=== PATIENT | female | born 1950 | race Asian ===

== ENCOUNTER 2017-01-14 23:47 | Emergency (ER) | payer OTHER ==
[~2017-01-14] VITALS: Ht 165.1 cm; Wt 61.2 kg
[2017-01-15] MEDS ORDERED: LEVO50 PO (00:04)
[2017-01-15] MEDS ORDERED: CITA20TA9 PO (00:04)
[2017-01-15 00:18] LABS: BASOPHILS # (AUTO) 0.06 K/uL (0.00-0.20); BASOPHILS % (AUTO) 0.8 % (0.0-2.0); EOSINOPHILS # (AUTO) 0.32 K/uL (0.00-0.70); EOSINOPHILS % (AUTO) 4.59 % (1.0-6.0); HEMATOCRIT 37.5 % (36-46); HEMOGLOBIN 12.5 g/dL (12.0-16.0); LYMPHOCYTES # (AUTO) 2.9 K/uL (1.0-4.8); MEAN CORPUSCULAR HEMOGLOBIN 28.5 pg (26.0-34.0); MEAN CORPUSCULAR HGB CONC 33.2 G/dL (31.0-37.0); MEAN CORPUSCULAR VOLUME 86 fL (80-100); MONOCYTES # (AUTO) 0.6 K/uL (0.1-1.0); MONOCYTES % (AUTO) 8.6 % (2.0-9.0); PLATELET COUNT (AUTO) 246 K/uL (150-450); RED BLOOD CELL COUNT(AUTO) 4.36 MIL/uL (4.00-5.20); RED CELL DISTRIBUTION WIDTH 12.7 % (11.5-14.5); WHITE BLOOD COUNT (AUTO) 6.9 K/uL (4.5-11.0)
[2017-01-15 00:30] LABS: PROTHROMBIN TIME 10.4 SEC (9.4-11.6)
[2017-01-15 00:31] LABS: ANION GAP 12 mmol/L (8-16); CALCIUM, TOTAL 8.2 mg/dL (8.8-10.5); CARBON DIOXIDE 27 mmol/L (22-29); CHLORIDE 107 mmol/L (98-107); CREATININE 0.82 mg/dL (0.60-1.30); GLOMERULAR FILTR. RATE CALC > 60 mL/min (>60); POTASSIUM 3.2 mmol/L (3.5-5.1); SODIUM SERUM 146 mmol/L (136-145); UREA NITROGEN, BLOOD 13 mg/dL (7-18)
[2017-01-15 00:36] LABS: B-TYPE NATRIURETIC PEPTIDE 111 pg/mL (0-100)
[2017-01-15 00:55] LABS: ALANINE AMINOTRANSFERASE 18 U/L (12-78); ALBUMIN 3.1 g/dL (3.4-5.0); ASPARTATE AMINOTRANSFERASE 17 U/L (15-37); BILIRUBIN,TOTAL 0.3 mg/dL (0.1-1.0); CREATINE KINASE, TOTAL 96 U/L (26-192); TOTAL PROTEIN, SERUM 6.3 g/dL (6.4-8.2)
[2017-01-15 00:57] LABS: CREATINE KINASE MB < 0.5 ng/mL (0-5)
[2017-01-15 01:30] LABS: APPEARANCE,URINE CLOUDY (CLEAR); GLUCOSE, URINE (UA) NEGATIVE (NEGATIVE); KETONES,URINE NEGATIVE (NEGATIVE); LEUKOCYTE ESTERASE ,URINE MODERATE (NEGATIVE); OCCULT BLOOD,URINE TRACE (NEGATIVE); PROTEIN,URINE NEGATIVE (NEGATIVE)
[2017-01-15 01:33] LABS: ADD UA MICROSCOPIC YES
[2017-01-15 01:37] LABS: SQUAMOUS EPITHELIAL CELL,UR Many /LPF (None Seen)
[2017-01-15] MEDS ORDERED: POTASSIUM CHLORIDE 20 MEQ ER TABLET PO ONE (02:15)
[2017-01-15] MEDS ORDERED: NITROFURANTOIN/NITROFURAN MAC 100 MG CAPSULE [MACROBID] PO ONE (02:15)
[2017-01-15 02:43] VITALS: BP 115/61
== END 2017-01-15 03:09 | disposition short-term general hospital (02) ==
LOC: EMS 23:49
DX: R55 Syncope and collapse (principal); N39.0 Urinary tract infection, site not specified; E87.6 Hypokalemia; E03.9 Hypothyroidism, unspecified
CPT/HCPCS: 70460; 72125; 82962; 87086; 93005; 99285